=== PATIENT | male | born 1970 | race Caucasian/White ===

== ENCOUNTER 2017-01-12 15:39 | Emergency (ER) | payer BC, OTHER ==
[~2017-01-12] VITALS: Ht 172.7 cm; Wt 79.4 kg
[2017-01-12] MEDS ORDERED: SODIUM CHLORIDE 0.9% 1,000 ML IVB ONE (16:16)
[2017-01-12 16:59] LABS: Basophils # (auto) 0 uL; Basophils % (auto) 0.3 % (0.0-2.0); Eosinophils # (auto) 0 uL; Eosinophils % (auto) 0.1 % (0.0-7.0); Hemoglobin 15.5 g/dL (13.5-17.5); Lymphocytes # (auto) 1.2 uL; Lymphocytes % (auto) 9.4 % (10.0-50.0); Mean Corpuscular Hemoglobin 29.6 pg (28.0-32.0); Mean Corpuscular Hgb Conc. 33.8 g/dL (32.0-36.0); Mean Corpuscular Volume 87.6 fL (80.0-100.0); Mean Platelet Volume 10.9 fL (7.4-10.4); Monocytes # (auto) 1.1 uL; Monocytes % (auto) 8.7 % (0.0-12.0); Neutrophils # (auto) 10.6 uL; Neutrophils % (auto) 81.5 % (37.0-80.0); Platelet Count (auto) 205 10^3/uL (140-450); Red Cell Distribution Width 13.7 % (11.6-16.0); SUSPECT VIEW TRANSMISSION
[2017-01-12 17:19] LABS: Partial Thromboplastin Time 48.3 sec (22.64-33.71)
[2017-01-12 17:25] LABS: Prothrombin Time 67.6 sec (9.37-12.3)
[2017-01-12 17:32] LABS: Albumin 4.6 g/dL (3.4-5.0); Anion Gap 11 (5-15); Aspartate Aminotransferase 43 U/L (15-37); BUN/Creatinine Ratio 12.7; Blood Urea Nitrogen 15 mg/dL (7-18); Calcium 8.7 mg/dL (8.5-10.1); Carbon Dioxide 25 mmol/L (21-32); Chloride 101 mmol/L (98-107); GFR African American 86 mL/min; GFR Non-African American 71 mL/min; Glucose 88 mg/dL (74-106); Magnesium 2.3 mg/dL (1.6-2.6); Potassium 3.6 mmol/L (3.5-5.1); Sodium 137 mmol/L (136-145)
[2017-01-12 17:35] LABS: INR 6.26 (0.9-1.15)
[2017-01-12 17:37] LABS: Alkaline Phosphatase 48 U/L (45-117); Bilirubin, Total 1.2 mg/dL (0.2-1.0); Total Protein 7.8 g/dL (6.4-8.2)
[2017-01-12 18:15] VITALS: BP 151/65
== END 2017-01-12 18:35 | disposition left against medical advice (07) ==
LOC: ER 15:39
DX: F14.10 Cocaine abuse, uncomplicated (principal); R07.89 Other chest pain; E78.5 Hyperlipidemia, unspecified
CPT/HCPCS: 36415; 71010; 80053; 80307; 83735; 84484; 85025; 85610; 85730; 93005; 94761; 96360; 99285; J7030